=== PATIENT | male | born 1950 | race Caucasian/White ===

== ENCOUNTER 2017-01-07 06:02 | Inpatient (IN) | payer MEDICARE, BC, MEDICAID ==
[~2017-01-07 06:02] MED LIST: ACETYLCYSTE INH; ADRENALIN1 MG/1 M3 ENDO; ALBUTEROL 0.5% INH; ALBUTEROL I0.5 ML/EA AERO NEB; AMBIEN10 MG; AMBIEN5 MG; ANTI DANDRUFF TOP; ARTIFICIAL TEAR15 M8 EACH EYE; ATROVENT HFA12.9 GM; ATROVENT SOLN2.5 ML AERO NEB; AYR SALINE NA14.1 GM TP; BACLOFEN10 MG; BACLOFEN10 MG PO; BACLOFEN20 M1 PO; BACLOFEN20 MG; BENADRYL25 M3 PO; BISACODYL EC5 MG PO; BISACODYL10 MG/SU; CATAPRES0.1 MG PO; CELEXA20 M2 PO; CELEXA20 MG; CELEXA40 MG PO; COLACE100 M1 PO; COLACE100 MG PO; COMPAZINE10 M PO; COUGH; DEBROX15 M1 EACH EAR; DEMADEX20 MG; DULCOLAX10 MG PR; DULCOLAX5 M1 PO; DULCOLAX5 MG; ELAVIL50 MG PO; ENEMA PR; FLAGYL500 M1 PO; FLEET ENEMA133 ML PR; FLONASE16 GM NS; GAS-X80 MG PO; H PO; HIPREX1 G; HIPREX1 GM PO; HYDROCODON-ACE1 EA16 PO; IBUPROFEN600 M1 PO; IPRATROPIU0.2 MG/1 M INH; K-DUR10 MEQ; K-DUR20 MEQ; LASIX20 M1 PO; LAXATIVE10 MG/SUPP RC; LEXAPRO10 MG; LIDOCAINE; LIDOCAINE 2% ENDO; LUNESTA2 MG; MAGNESIUM CITRATE PO; MEN'S ONE DAIL1 EACH PO; MUCINEX600 M1 PO; MUCOMYST200 MG/ML; MULTIVITAMIN1 TAB PO; MUPIROCIN22 G2 TP; NEOMYCIN PO; NEURONTIN300 M1 PO; NEURONTIN300 MG PO; NITRO-BID30 GM TD; NON ASPIRIN650 MG; NON-ASPIRIN325 MG PO; POLYETHYLENE G255 G1 PO; POTASSIUM CHLO20 ME3 PO; PRILOSEC20 MG; PROTONIX40 M2 PO; PULMICORT0.5 MG/22 INH; PULMOZYME1 MG/1 ML INH; SANTYL30 G1 TP; SIMETHICONE80 M3 PO; SUDAFED30 M1 PO; SUDAFED30 M2 PO; TEMAZEPAM15 MG PO; TYLENOL325 M2 PO; URISPAS100 MG; VENTOLIN HFA8 GM; VITAMIN C PO; VITAMIN C500 M3 PO; VITAMIN D1000 UNI1 PO; VITAMIN D31000 UNI3 PO; XANAX0.5 MG; ZANAFLEX6 M1 PO; ZOFRAN4 M2 PO; [UNRECOGNIZED DRUG - OTHER]; [UNRECOGNIZED DRUG - OTHER]; [UNRECOGNIZED DRUG - OTHER] EACH EAR; [UNRECOGNIZED DRUG - OTHER] TOP; [UNRECOGNIZED DRUG - OTHER] TP
[2017-01-09 07:10] LABS: HGB-HEMOGLOBIN 12.5 gm/dl (13.5-17.0); PLATELET COUNT 243 tho/cmm (150-450)
[2017-01-11 06:06] LABS: HGB-HEMOGLOBIN 13.4 gm/dl (13.5-17.0); PLATELET COUNT 221 tho/cmm (150-450)
[2017-01-11 15:47] LABS: CREATININE 0.51 mg/dl (0.60-1.30); eGFR VALUE FOR BLACK >90 mL/Min
[2017-01-12 05:54] LABS: BASO % 0.5 % (0-2); EOS % 8.7 % (0-7); EOSINOPHIL ABSOLUTE COUNT 0.7 tho/cmm (0.0-0.7); HCT-HEMATOCRIT 39.2 % (36.0-53.5); HGB-HEMOGLOBIN 12.7 gm/dl (13.5-17.0); IMMATURE GRANULOCYTES ABSOLUTE 0.06 tho/cmm (0-0.03); IMMATURE GRANULOCYTES PERCENT 0.7 % (0-0.3); LYMPH % 23.3 % (20-45); LYMPH ABSOLUTE COUNT 1.9 tho/cmm (0.8-4.5); MCH (MEAN CORPUSCULAR HGB) 28.4 pg (28.0-32.0); MCHC MEAN CORPUSCULAR HGB CONC 32.4 % (32.0-36.0); MCV (MEAN CELL VOLUME) 87.7 fl (82.0-96.0); MEAN PLATELET VOLUME 9.5 cmc (9.4-12.4); MONO % 13.6 % (0-12); MONOCYTE ABSOLUTE COUNT 1.1 tho/cmm (0.0-1.2); NEUTROPHIL ABSOLUTE COUNT 4.3 tho/cmm (1.6-8.0); NEUTROPHIL-AUTOMATED 4.3 tho/cmm (1.6-8.0); NEUTROPHILS % 53.2 % (40-80); PLATELET COUNT 233 tho/cmm (150-450); RED BLOOD COUNT 4.47 mil/cmm (4.40-5.70); RED CELL DISTRIBUTION WIDTH 15.9 % (12.4-16.4); WHITE BLOOD COUNT 8.1 tho/cmm (4.0-10.0)
[2017-01-12 06:19] LABS: ANION GAP 16 mmol/L (0-20); BLOOD UREA NITROGEN 4 mg/dl (6-24); CALCIUM 7.7 mg/dl (8.5-10.5); CARBON DIOXIDE-VENOUS 22 mmol/L (22-32); CHLORIDE 114 mmol/l (96-110); CREATININE 0.34 mg/dl (0.60-1.30); GLUCOSE 85 mg/dL (70-110); SODIUM 147 mmol/L (135-145); eGFR VALUE FOR BLACK >90 mL/Min
[2017-01-12 06:21] LABS: POTASSIUM 5.1 mmol/L (3.7-5.1)
[2017-01-13 05:53] LABS: HGB-HEMOGLOBIN 14.2 gm/dl (13.5-17.0); PLATELET COUNT 243 tho/cmm (150-450)
[2017-01-13 18:16] LABS: BASO % 0.3 % (0-2); EOS % 6.3 % (0-7); EOSINOPHIL ABSOLUTE COUNT 0.8 tho/cmm (0.0-0.7); HCT-HEMATOCRIT 39.3 % (36.0-53.5); HGB-HEMOGLOBIN 12.6 gm/dl (13.5-17.0); IMMATURE GRANULOCYTES ABSOLUTE 0.06 tho/cmm (0-0.03); IMMATURE GRANULOCYTES PERCENT 0.5 % (0-0.3); LYMPH % 12.5 % (20-45); LYMPH ABSOLUTE COUNT 1.5 tho/cmm (0.8-4.5); MCH (MEAN CORPUSCULAR HGB) 28.5 pg (28.0-32.0); MCHC MEAN CORPUSCULAR HGB CONC 32.1 % (32.0-36.0); MCV (MEAN CELL VOLUME) 88.9 fl (82.0-96.0); MONO % 8.3 % (0-12); NEUTROPHIL ABSOLUTE COUNT 8.6 tho/cmm (1.6-8.0); NEUTROPHIL-AUTOMATED 8.6 tho/cmm (1.6-8.0); NEUTROPHILS % 72.1 % (40-80); PLATELET COUNT 209 tho/cmm (150-450); RED BLOOD COUNT 4.42 mil/cmm (4.40-5.70); RED CELL DISTRIBUTION WIDTH 16.2 % (12.4-16.4); WHITE BLOOD COUNT 11.9 tho/cmm (4.0-10.0)
[2017-01-14 06:29] LABS: BASO % 0.2 % (0-2); EOS % 6.1 % (0-7); EOSINOPHIL ABSOLUTE COUNT 0.6 tho/cmm (0.0-0.7); HCT-HEMATOCRIT 42.3 % (36.0-53.5); HGB-HEMOGLOBIN 13.4 gm/dl (13.5-17.0); IMMATURE GRANULOCYTES ABSOLUTE 0.04 tho/cmm (0-0.03); IMMATURE GRANULOCYTES PERCENT 0.4 % (0-0.3); LYMPH ABSOLUTE COUNT 1.1 tho/cmm (0.8-4.5); MCH (MEAN CORPUSCULAR HGB) 28.4 pg (28.0-32.0); MCHC MEAN CORPUSCULAR HGB CONC 31.7 % (32.0-36.0); MCV (MEAN CELL VOLUME) 89.6 fl (82.0-96.0); MEAN PLATELET VOLUME 9.6 cmc (9.4-12.4); MONO % 8.7 % (0-12); MONOCYTE ABSOLUTE COUNT 0.9 tho/cmm (0.0-1.2); NEUTROPHIL ABSOLUTE COUNT 7.7 tho/cmm (1.6-8.0); NEUTROPHIL-AUTOMATED 7.7 tho/cmm (1.6-8.0); NEUTROPHILS % 73.6 % (40-80); PLATELET COUNT 243 tho/cmm (150-450); RED BLOOD COUNT 4.72 mil/cmm (4.40-5.70); RED CELL DISTRIBUTION WIDTH 16.6 % (12.4-16.4); WHITE BLOOD COUNT 10.4 tho/cmm (4.0-10.0)
[2017-01-14 06:53] LABS: ANION GAP 11 mmol/L (0-20); BLOOD UREA NITROGEN 5 mg/dl (6-24); CARBON DIOXIDE-VENOUS 24 mmol/L (22-32); CHLORIDE 112 mmol/l (96-110); CREATININE 0.41 mg/dl (0.60-1.30); GLUCOSE 87 mg/dL (70-110); SODIUM 143 mmol/L (135-145); eGFR VALUE FOR BLACK >90 mL/Min
[2017-01-14 06:55] LABS: POTASSIUM 4.2 mmol/L (3.7-5.1)
[2017-01-15 05:55] LABS: HGB-HEMOGLOBIN 11.8 gm/dl (13.5-17.0); PLATELET COUNT 217 tho/cmm (150-450)
== END 2017-01-15 13:45 | DRG 329 ==
LOC: BURN 06:02 → ORW 07:44 → BURN 11:04
PROVIDERS: Family Medicine; Surgery; ADMIT Surgery
PROC: 5A1955Z Respiratory Ventilation, Greater than 96 Consecutive Hours (ICD-10-PCS; 2017-01-07)
PROC: 0D1N4Z4 Bypass Sigmoid Colon to Cutaneous, Percutaneous Endoscopic Approach (ICD-10-PCS; 2017-01-07)
PROC: 04L20ZZ Occlusion of Gastric Artery, Open Approach (ICD-10-PCS; 2017-01-07)
PROC: 0QB30ZZ Excision of Left Pelvic Bone, Open Approach (ICD-10-PCS; principal; 2017-01-13)
PROC: 0KX Muscles, Transfer (ICD-10-PCS; principal; 2017-01-13)
DX: K59.2 Neurogenic bowel, not elsewhere classified (principal); L89.314 Pressure ulcer of right buttock, stage 4; G82.50 Quadriplegia, unspecified; Z99.11 Dependence on respirator [ventilator] status; L89.324 Pressure ulcer of left buttock, stage 4; J96.10 Chronic respiratory failure, unspecified whether with hypoxia or hypercapnia; E66.01 Morbid (severe) obesity due to excess calories; N31.9 Neuromuscular dysfunction of bladder, unspecified; R13.10 Dysphagia, unspecified; F32.9 Major depressive disorder, single episode, unspecified; F34.1 Dysthymic disorder; F41.8 Other specified anxiety disorders; F41.9 Anxiety disorder, unspecified; K59.00 Constipation, unspecified; Z68.30 Body mass index [BMI] 30.0-30.9, adult; Z87.828 Personal history of other (healed) physical injury and trauma; Z87.440 Personal history of urinary (tract) infections
CPT/HCPCS: J0171; J0690; J1644; J3010; J3370; J7050; J7120; J7999; P9045